=== PATIENT | male | born 1960 | race Caucasian/White ===

== ENCOUNTER 2019-09-23 06:55 | Inpatient (IN) | payer OTHER ==
[2019-09-11 08:34] LABS: URINE BILIRUBIN NEGATIVE (Negative); URINE BLOOD TRACE (Negative); URINE CLARITY CLEAR; URINE COLOR YELLOW; URINE GLUCOSE-RANDOM NEGATIVE (Negative); URINE KETONES NEGATIVE (Negative); URINE LEUKOCYTES-REFLEX NEGATIVE (Negative); URINE NITRITE-REFLEX NEGATIVE (Negative); URINE PROTEIN NEGATIVE (Negative); URINE SPECIFIC GRAVITY >= 1.030 (1.005-1.030); URINE UROBILINOGEN 0.2 E.U./dl (0.2-1.0)
[2019-09-11 08:35] LABS: HEMATOCRIT 45.7 % (42.0-52.0); HEMOGLOBIN 15.9 gm/dL (14.0-18.0); MCH 30.5 pg (26.0-34.0); MCHC 34.8 g/dL (28.0-37.0); MCV 87.8 fL (80.0-100.0); MPV 8.1 fl. (7.2-11.1); RBC 5.21 mil/uL (4.50-6.00); RDW-CV 13.6 % (10.5-14.5); WBC 8.9 thou/uL (4.0-11.0)
[2019-09-11 08:44] LABS: PROTIME 10.1 Seconds (9.20-11.50)
[2019-09-11 09:11] LABS: ALBUMIN 3.6 g/dL (3.4-5.0); POTASSIUM 4.1 mmol/L (3.5-5.1); TOTAL BILIRUBIN 1.1 mg/dL (<0.1-1.0); TOTAL PROTEIN 6.7 g/dL (6.4-8.2)
[~2019-09-23] VITALS: Ht 180.3 cm; Wt 96.6 kg
[~2019-09-23 06:55] MED LIST: BAYER CHEWABLE81 MG PO; BRILINTA90 MG PO; COQ1050 MG PO; METOPROLOL TART25 MG PO; NITROSTAT0.4 M1 SUBLING; OMEGA 3 FISH O1 EACH PO; PRAVACHOL 20 MG20 M1 PO; PROTONIX40 M2 PO; TESTOSTERO200 MG/1 M IM
[2019-09-23 07:44] VITALS: BP 122/80
[2019-09-23 13:39] VITALS: BP 142/66
[2019-09-23 16:00] VITALS: BP 152/44; BP 166/58
[2019-09-23 18:45] VITALS: BP 152/44
[2019-09-24 01:00] VITALS: BP 129/63
[2019-09-24 04:00] VITALS: BP 128/59
[2019-09-24 05:18] LABS: HEMATOCRIT 38.7 % (42.0-52.0); HEMOGLOBIN 13.3 gm/dL (14.0-18.0)
[2019-09-24 08:00] VITALS: BP 113/57
[2019-09-24] MEDS ORDERED: PERCOCET 5-3251 EACH PO (09:54)
[2019-09-24] MEDS ORDERED: XARELTO10 M1 PO (09:54)
[2019-09-24 09:57] VITALS: BP 152/44
[2019-09-24 14:05] VITALS: BP 152/44
--- NOTE | 2019-09-26 14:19 | OP ---
[facility] [address] [place] [address] OPERATIVE REPORT Name: JAIR LARA Room: [address] M.R.#: [id number] Admission: 09/23/19 Attend Phys: Mike Roth Discharge: 09/24/19 Date of : 58 Report #: [id number] THIS REPORT FOR: //name// CC: Barbara Colon PREOPERATIVE DIAGNOSES: 1. Right knee unicompartmental knee replacement. 2. Arthritis in the lateral compartment and patellofemoral compartment. PROCEDURE PERFORMED: Right knee removal of unicompartmental knee replacement and implantation of right total knee arthroplasty with Navio. SURGEON: Kee Bedoya II, DO MAIL DISTRIBUTION CLERK: DAYNE Kaufman ANESTHESIA: General endotracheal. ESTIMATED BLOOD LOSS: 50 mL. ANTIBIOTICS: Ancef preoperatively. DRAINS: Medium Hemovac. COMPLICATIONS: None. CONDITION OF PATIENT: Stable to recovery room. IMPLANTS: Listed in the operative record and progress note. BRIEF HISTORY: The patient was seen in the preoperative area. Preoperative H and P was performed. Site was marked, questions were answered. Risks and benefits were discussed with the patient in detail about surgery. The patient wished to proceed, assuming all risks. DESCRIPTION OF PROCEDURE: The patient was taken to the operative suite and placed supine on the operative table, given appropriate anesthesia. A well-padded tourniquet applied to the upper thigh, which was inflated to 300 mmHg after gravity exsanguination for duration of procedure. The operative knee was sterilely prepped and draped. Surgery began by midline incision. This was carried down to the subcutaneous tissues. A medial parapatellar arthrotomy was performed and carried down to bone. Patella was then everted and excess soft tissue removed from around the femur. The Navio trackers were placed along the femur and tibia and registered through the Navio software. The femur and tibia were also registered through the software. [place] [address] OPERATIVE REPORT Name: JAIR LARA Room: [address] M.R.#: [id number] Admission: 09/23/19 Attend Phys: Mike Roth Discharge: 09/24/19 Date of : 58 Report #: [id number] had been evaluated, the unicompartmental replacement was removed from the femur and tibial base areas and excess cement was cleaned up around these areas. The robotic handpiece was activated and cutting guide holes were placed along the femur and tibia. The femoral cutting block was then applied, checked with the appropriate alignment with the Navio, pinned in appropriate position and appropriate cuts were made. The 4-in-1 cutting block was then applied, pinned in appropriate position and appropriate cut was made. Attention was then turned to the tibia. Tibial cutting block was then applied, checked with the Navio for appropriate cutting alignment and pinned in appropriate position and appropriate cut was made. Excess bone was removed and excess osteophytes were cleared up around the medial and lateral sides. The tibial base plate was then applied, checked with a drop elvira, pinned in appropriate position and appropriate cuts were made. The femur was then applied and box cut was reamed. This was then trialed with appropriate spacer, which showed excellent fit and fill and excellent stability of knee through all range of motion with excellent stability on the Navio software. The patella was reamed in appropriate fashion and sized to appropriate size. Three peg holes were drilled and it was then trialed and showed excellent flexion, extension, excellent tracking of the patella within the groove. These trials were removed. The tibia was punched in appropriate fashion. Bone ends were cleansed with Pulsavac irrigation and cement was applied to final implants. These were then malleted into position and held the knee in extension and compressed to allow cement to cure. After it cured, excess cement was removed using [place] and osteotome. Wound was then copiously irrigated and the final spacer was then malleted into position. The tourniquet was deflated. Hemostasis was maintained with electrocautery. Pain cocktail was injected. PRP gel was sprayed throughout internal aspects of the knee. Medium Hemovac drain was applied. Capsule was closed with #2 FiberWire and #1 Vicryl in [id number] fashion. Skin was closed with 2-0 Vicryl and running 3-0 Monocryl. Dermabond and sterile dressing applied. Jeff wrap and PolarCare applied. The patient transported to recovery room in stable condition. Counts were correct throughout the procedure. <ELECTRONICALLY SIGNED> By: Kee Bedoya II, DO 09/26/19 [id number] Bedoya II, DO /nt
== END 2019-09-24 14:08 | disposition home health service (06) | DRG 468 ==
LOC: M.TBA 06:55 → M.PRE 07:49 → M.ORTHSURG 12:45 → M.PRE 13:02 → M.ORTHSURG 09-24 14:08
PROVIDERS: Orthopaedic Surgery; ADMIT Internal Medicine
PROC: 8E0Y0CZ Robotic Assisted Procedure of Lower Extremity, Open Approach (ICD-10-PCS; principal; 2019-09-23)
PROC: 0SRC0J9 Replacement of Right Knee Joint with Synthetic Substitute, Cemented, Open Approach (ICD-10-PCS; principal; 2019-09-23)
PROC: 0SPC0JZ Removal of Synthetic Substitute from Right Knee Joint, Open Approach (ICD-10-PCS; principal; 2019-09-23)
DX: M17.11 Unilateral primary osteoarthritis, right knee (principal); I25.10 Atherosclerotic heart disease of native coronary artery without angina pectoris; G47.33 Obstructive sleep apnea (adult) (pediatric); K21.9 Gastro-esophageal reflux disease without esophagitis; I10 Essential (primary) hypertension; I25.2 Old myocardial infarction; Z95.5 Presence of coronary angioplasty implant and graft; Z88.8 Allergy status to other drugs, medicaments and biological substances; Z79.82 Long term (current) use of aspirin; Z79.899 Other long term (current) drug therapy